=== PATIENT | male | born 1950 | race Caucasian/White ===

== ENCOUNTER → 2016-06-15 | Outpatient (CLI) | payer MEDICARE ==
--- NOTE | 2016-06-15 12:51 | EST ---
DATE OF SERVICE: 06/15/2016 AGE: 66Y SEX: M HT: 69" WT: 207 lbs. Protocol Theodore: X Other: Stage: IV Dur. of Exercise: 10 minutes *Heart Rate Blood Pressure *Rest: 74 Rest: 130/82 * *Max. Achieved: 162 Maximum BP: 173/68 85% PMHR: 131 100% PMHR: 154 *METS: 11.7 INDICATIONS: Hypertension. MEDICATIONS: Lisinopril. Flojovanie, Ambien. Patient was exercised for a total period of 10 minutes. A peak heart rate of 162 was achieved. Maximum blood pressure of 173/68 mmHg was noted. Resting EKG shows normal sinus rhythm with normal VT interval and QRS duration and normal ST-T waves. No ST segment depression suggestive of ischemia is noted. Occasional PVCs are noted. The patient did not complain of any chest pain during the test. FINAL IMPRESSION: This exercise test is not suggestive of ischemia. The patient did not complain of any anginal pain during the test. Patient's exercise tolerance is excellent. Occasional PVCs were noted.
== END ==
LOC: RADNMMAIN 10:17
PROVIDERS: ATTEND Family Medicine
DX: I49.3 Ventricular premature depolarization (principal)
CPT/HCPCS: 93017

== ENCOUNTER → 2021-03-04 | Outpatient (CLI) | payer MEDICARE | END | disposition home or self-care (01) | LOC: LABWHC1 10:10 | PROVIDERS: ATTEND Nurse Practitioner Family | DX: N52.01 Erectile dysfunction due to arterial insufficiency (principal) | CPT/HCPCS: 36415; 82040; 84270; 84403 ==

== ENCOUNTER → 2024-02-12 | Outpatient (CLI) | payer MEDICARE ==
--- NOTE | 2024-02-12 13:20 | XR ---
EXAMINATION TYPE: XR lumbosacral spine min 4V DATE OF EXAM: 02/12/2024 12:44 PM COMPARISON: None CLINICAL INDICATION: Male, 73 years old with history of M54.16 RADICULOPATHY, LUMBAR REGION; [facility] TECHNIQUE: XR lumbosacral spine min 4V - Frontal, lateral , bilateral oblique and coned in L5-S1 late ral views of the spine. FINDINGS: No evidence of any acute osseous pathology. No evidence of loss of vertebral body height i s seen. There is normal alignment of the lumbar vertebral bodies. Mild scattered disc space narrowing . Multilevel marginal osteophyte formation throughout the visualized spine. There is facet joint arth ropathy throughout the spine. Scattered at least moderate neural foraminal stenosis. IMPRESSION: 1. No acute fracture. 2. 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 [facility], , 02/12/2024 1:18 PM
== END | disposition home or self-care (01) ==
LOC: RADXRMAIN 12:28
PROVIDERS: ATTEND Family Medicine
CPT/HCPCS: 72110